=== PATIENT | female | born 1975 | race Asian ===

== ENCOUNTER 2019-05-29 19:36 | Emergency (ER) | payer OTHER ==
--- NOTE | 2019-05-29 20:48 | ED Physician Documentation ---
PD HPI HEENT - Stated complaint Stated Complaint: BIT TONGUE - BLEEDING [id number] - Chief complaint Chief Complaint: General - History obtained from History obtained from: Patient - History of Present Illness Timing - onset: Enter time (16:00), Today Timing - details: Abrupt onset Location: Other (tongue) Similar symptoms before: Has not had sx before Recently seen: Not recently seen - Additional information Additional information: while chewing food at 4 PM today, patient bit her tongue. c/o recurrent bleeding from the tongue laceration Review of Systems Throat: reports: Other (tongue laceration) PD PAST MEDICAL HISTORY - Past Medical History Past Medical History: No - Allergies Allergies/Adverse Reactions: Allergies Allergy/AdvReac Type Severity Reaction Status Date / Time No Known Drug Allergies Allergy Verified 05/29/19 19:48 - Living Situation Living Situation: reports: With family Living Arrangement: reports: At home PD ED PE NORMAL - Vitals Vital signs reviewed: Yes - General General: Alert and oriented X 3, No acute distress, Well developed/nourished - HEENT HEENT: Moist mucous membranes PD ED PE EXPANDED - HEENT HEENT: Tongue laceration (right anterolateral laceration, 1 cm length, gapes when she protrudes tongue for exam. no active bleeding noted) Results - Vitals Vitals: Vital Signs - 24 hr 05/29/19 05/29/19 19:47 21:58 Temperature 36.5 C 37.1 C Heart Rate 72 68 Respiratory 16 16 Rate Blood Pressure 116/95 H 121/74 O2 Saturation 100 100 Oxygen O2 Source Room air Procedures - Laceration (location) Other Lateral Length in cm: 1 Wound type: Linear, Into muscle, Clean Neurovascular status: Sensory intact, Motor intact, Vascular intact Anesthesia: Lidocaine 1% Skin layer closure: Interrupted, Size #-0 - enter number (4-09), Other (vycryl) Other: Patient tolerated well, No complications, Tetanus UTD Complexity: Simple PD MEDICAL DECISION MAKING - ED course Complexity details: considered differential, d/w patient Departure - Departure Disposition: 01 Home, Self Care Clinical Impression: Tongue laceration Condition: Good Instructions: ED Laceration Mouth Discharge Date/Time: 05/29/19 22:04
[2019-05-29] MEDS ORDERED: LIDOCAINE 1% 2 ML VIAL SUBQ STA (20:54)
[2019-05-29 21:59] VITALS: BP 121/74
== END 2019-05-29 22:04 | disposition home or self-care (01) ==
LOC: ED 19:36
DX: S01.512A Laceration without foreign body of oral cavity, initial encounter (principal); X58.XXXA Exposure to other specified factors, initial encounter
CPT/HCPCS: 41250; 99282